=== PATIENT | female | born 1930 | race Two or more races ===

== ENCOUNTER 2016-10-12 12:57 | Inpatient (IN) | payer MEDICARE, OTHER ==
[~2016-10-12] VITALS: Ht 165.1 cm; Wt 85.3 kg
[2016-10-12 15:23] LABS: BASOPHILS % 0.7 % (0.0-2.0); EOSINOPHILS % 2.1 % (0.0-5.0); HEMATOCRIT. 35.9 % (36.0-48.0); HEMOGLOBIN. 11.9 g/dL (12.0-16.0); LYMPHOCYTES % 24.3 % (20.0-50.0); MEAN CORPUSCULAR HEMOGLOBIN 29.2 pg (28.0-32.0); MEAN CORPUSCULAR HGB CONC 33.3 g/dL (31.0-37.0); MEAN CORPUSCULAR VOLUME 87.8 fL (81.0-99.0); MEAN PLATELET VOLUME 9.5 fl (7.4-10.4); MONOCYTES % 7.7 % (2.0-8.0); NEUTROPHILS % 65.2 % (40.0-76.0); PLATELET 194 x1000/uL (130-400); RED BLOOD CELL COUNT 4.09 mill/uL (4.2-5.4); RED CELL DISTRIBUTION WIDTH 13.7 % (11.6-14.6); WHITE BLOOD COUNT 8.8 x1000/uL (4.5-11.0)
[2016-10-12 15:25] LABS: PARTIAL THROMBOPLASTIN TIME 24.6 sec (24.0-34.0); PROTHROMBIN TIME 10.5 sec
[2016-10-12 15:31] LABS: ALANINE AMINOTRANSFERASE 24 IU/L (13-61); ALBUMIN 3.4 g/dL (3.4-5.0); ANION GAP 13; CALCIUM 9.1 mg/dL (8.5-10.1); CARBON DIOXIDE 29 mEq/L (21-32); CHLORIDE 103 mEq/L (98-107); ETHANOL BLOOD < 10 mg/dL; INDEX HEMOLYSI 1 (1-3); INDEX ICTERIC 1 (1-4); INDEX LIPEMIC 1 (1-3); UREA NITROGEN BLOOD 21 mg/dL (7-21); eGFR > 60 mL/min (>60)
[2016-10-12 19:36] LABS: *AMPHETAMINES SCREEN URINE NEGATIVE (NEGATIVE); *BARBITURATES SCREEN URINE NEGATIVE (NEGATIVE); *BENZODIAZEPINES SCREEN URINE NEGATIVE (NEGATIVE); *COCAINE SCREEN URINE NEGATIVE (NEGATIVE); CANNABINOID URINE SCREEN NEGATIVE (NEGATIVE); ECSTASY MDMA SCREEN URINE NEGATIVE (NEGATIVE); METHADONE URINE SCREEN NEGATIVE (NEGATIVE); OPIATES URINE SCREEN NEGATIVE (NEGATIVE); PHENCYCLIDINE URINE SCREEN NEGATIVE (NEGATIVE)
[2016-10-12] MEDS ORDERED: LORAZEPAM 2MG/ML CPJ IV ONE (21:00)
[2016-10-12] MEDS ORDERED: IPRATROPIUM/ALBUTEROL 0.5-3(2.5)MG/3ML NEB INH PRN (21:15)
[2016-10-12] MEDS ORDERED: DOCUSATE SODIUM 100MG CAPSULE PO PRN (21:15)
[2016-10-12] MEDS ORDERED: DIPHENHYDRAMINE 50MG/ML VIAL IV PRN (21:15)
[2016-10-12] MEDS ORDERED: NA PHOS,M-B/NA PHOS,DI-BA ENEMA 118ML PR PRN (21:15)
[2016-10-12] MEDS ORDERED: CLONIDINE 0.1MG TABLET PO PRN (21:15)
[2016-10-12] MEDS ORDERED: MAGNESIUM/ALUMINUM HYDROXIDE/SIMETHICONE 30ML UDC PO PRN (21:15)
[2016-10-12] MEDS ORDERED: HYDROCODONE/ACETAMINOPHEN 5/325MG TABLET PO PRN (21:15)
[2016-10-12] MEDS ORDERED: GUAIFENESIN 200MG/10ML SUGAR FREE UDC PO PRN (21:15)
[2016-10-12] MEDS ORDERED: ONDANSETRON HCL 4MG/2ML VIAL IV PRN (21:15)
[2016-10-12] MEDS ORDERED: ACETAMINOPHEN 325MG TABLET PO PRN (21:15)
[2016-10-12 22:52] LABS: ANION GAP 14; CALCIUM 8.4 mg/dL (8.5-10.1); CARBON DIOXIDE 27 mEq/L (21-32); CHLORIDE 104 mEq/L (98-107); INDEX HEMOLYSI 4 (1-3); INDEX ICTERIC 1 (1-4); INDEX LIPEMIC 1 (1-3); UREA NITROGEN BLOOD 17 mg/dL (7-21)
[2016-10-12 22:58] LABS: eGFR > 60 mL/min (>60)
[2016-10-12 22:59] LABS: TROPONIN I 0.04 ng/mL (0.00-0.04)
[2016-10-13] VITALS (8 sets, daily range): BP systolic 118–143; BP diastolic 69–82
[2016-10-13] MEDS ORDERED: HYDROMORPHONE HCL/PF 2MG/ML CPJ IV PRN (00:16)
[2016-10-13] MEDS ORDERED: DEXTROSE 50% WATER 50ML SYRINGE IV PRN (04:30)
[2016-10-13] MEDS: SODIUM CHLORIDE 0.45% 1,000 ML IV SCH ×2 (04:44→12:27)
[2016-10-13 07:02] LABS: BASOPHILS % 0.4 % (0.0-2.0); EOSINOPHILS % 2.6 % (0.0-5.0); HEMATOCRIT. 35.6 % (36.0-48.0); LYMPHOCYTES % 40.3 % (20.0-50.0); MEAN CORPUSCULAR HEMOGLOBIN 29.3 pg (28.0-32.0); MEAN CORPUSCULAR HGB CONC 33.6 g/dL (31.0-37.0); MEAN CORPUSCULAR VOLUME 87.2 fL (81.0-99.0); MEAN PLATELET VOLUME 9.8 fl (7.4-10.4); MONOCYTES % 7.5 % (2.0-8.0); NEUTROPHILS % 49.2 % (40.0-76.0); PLATELET 175 x1000/uL (130-400); RED BLOOD CELL COUNT 4.08 mill/uL (4.2-5.4); RED CELL DISTRIBUTION WIDTH 13.5 % (11.6-14.6); WHITE BLOOD COUNT 5.7 x1000/uL (4.5-11.0)
[2016-10-13] MEDS: BLOOD SUGAR DIAGNOSTIC STRIP TEST SCH ×5 (07:33→20:41)
[2016-10-13] MEDS: INSULIN LISPRO 100 UNITS/ML SUBCUT SCH ×4 (07:33→20:44)
[2016-10-13 07:59] LABS: ALANINE AMINOTRANSFERASE 21 IU/L (13-61); ALBUMIN 2.9 g/dL (3.4-5.0); ANION GAP 10; CALCIUM 8.5 mg/dL (8.5-10.1); CARBON DIOXIDE 28 mEq/L (21-32); CHLORIDE 106 mEq/L (98-107); HDL CHOLESTEROL 63 mg/dL (40-59); INDEX HEMOLYSI 1 (1-3); INDEX ICTERIC 1 (1-4); INDEX LIPEMIC 1 (1-3); LDL CHOLESTEROL 82 mg/dL (5-100); T4 FREE 1.08 ng/dL (0.76-1.46); THYROID STIMULATING HORMONE 0.86 uIU/mL (0.36-3.74); TRIGLYCERIDE 59 mg/dL (0-150); TROPONIN I 0.04 ng/mL (0.00-0.04); UREA NITROGEN BLOOD 14 mg/dL (7-21); eGFR > 60 mL/min (>60)
[2016-10-13] MEDS ORDERED: POTASSIUM CHLORIDE 20MEQ TABLET SR PO NR (08:30)
[2016-10-13] MEDS: ASPIRIN 81MG EC TABLET PO SCH (08:51)
[2016-10-14] VITALS: BP 112/67
[2016-10-14 04:00] VITALS: BP 119/66
[2016-10-14] MEDS: SODIUM CHLORIDE 0.45% 1,000 ML IV SCH ×2 (06:25→14:12)
[2016-10-14] MEDS: BLOOD SUGAR DIAGNOSTIC STRIP TEST SCH ×3 (06:44→16:54)
[2016-10-14] MEDS: INSULIN LISPRO 100 UNITS/ML SUBCUT SCH ×4 (07:40→20:21)
[2016-10-14 08:00] VITALS: BP 136/72
[2016-10-14] MEDS: ASPIRIN 81MG EC TABLET PO SCH (08:45)
[2016-10-14] MEDS: ENOXAPARIN 40MG/0.4ML SYR SUBCUT SCH (08:46)
[2016-10-14 12:00] VITALS: BP 140/80
[2016-10-14 16:00] VITALS: BP 150/80
[2016-10-14 20:00] VITALS: BP 154/79
[2016-10-14] MEDS: LORAZEPAM 2MG/ML CPJ IV PRN (20:58)
[2016-10-15] VITALS (7 sets, daily range): BP systolic 129–156; BP diastolic 69–92
[2016-10-15] MEDS: SODIUM CHLORIDE 0.45% 1,000 ML IV SCH (04:23)
[2016-10-15] MEDS: BLOOD SUGAR DIAGNOSTIC STRIP TEST SCH ×4 (06:29→21:00)
[2016-10-15] MEDS: INSULIN LISPRO 100 UNITS/ML SUBCUT SCH ×4 (06:37→21:00)
[2016-10-15] MEDS: ENOXAPARIN 40MG/0.4ML SYR SUBCUT SCH (09:16)
[2016-10-15] MEDS: ASPIRIN 81MG EC TABLET PO SCH (09:16)
[2016-10-15] MEDS: LORAZEPAM 2MG/ML CPJ IV PRN (21:21)
== END 2016-10-15 23:15 | DRG 640 ==
LOC: ER 14:52 → 8WST 21:38
PROVIDERS: ADMIT Internal Medicine; ATTEND Internal Medicine
DX: E86.0 Dehydration (principal); G93.41 Metabolic encephalopathy; F03.90 Unspecified dementia, unspecified severity, without behavioral disturbance, psychotic disturbance, mood disturbance, and anxiety; E11.9 Type 2 diabetes mellitus without complications; I10 Essential (primary) hypertension; S00.81XA Abrasion of other part of head, initial encounter; Z91.81 History of falling
CPT/HCPCS: 36415; 70450; 71010; 80048; 80053; 80061; 80305; 82962; 84439; 84443; 84484; 85025; 85610; 85730; 96374; 97116; 97161; 97530; 99285; C1893; G0482; J1200; J1650; J2060